=== PATIENT | male | born 1995 | race Caucasian/White ===

== ENCOUNTER 2020-11-04 17:39 | Emergency (ER) | payer OTHER ==
[2020-11-04 18:11] VITALS: PULSE 68; RESP 18
--- NOTE | 2020-11-04 19:05 | ED ---
Skin/Abscess/FB HPI - General Chief complaint: Skin/Abscess/Foreign Body Stated complaint: Spider bite Time Seen by Provider: 11/04/20 18:23 Source: patient, RN notes reviewed Mode of arrival: ambulatory Limitations: no limitations - History of Present Illness Initial comments: Edgar medina is a 25 she'll male that presents to emergency department for a bug bite to the lateral aspect of his right ankle. He notes that he woke up with this morning tried to pop it came in today due to some mild pain around the area. He notes he did not take any Benadryl Motrin or any topical stuff. He was otherwise a well-appearing 25-year-old male in no apparent distress or pain. He denied any chest pain shortness breath headache nausea vomiting diarrhea constipation fever fatigue chills. - Related Data Allergies Allergy/AdvReac Type Severity Reaction Status Date / Time No Known Allergies Allergy Verified 11/04/20 18:11 Review of Systems ROS Statement: Those systems with pertinent positive or pertinent negative responses have been documented in the HPI. ROS Other: All systems not noted in ROS Statement are negative. Past Medical History Past Medical History: Seizure Disorder History of Any Multi-Drug Resistant Organisms: None Reported Past Surgical History: No Surgical Hx Reported Past Psychological History: No Psychological Hx Reported Smoking Status: Current every day smoker Past Alcohol Use History: None Reported Past Drug Use History: None Reported General Exam Limitations: no limitations General appearance: alert, in no apparent distress, obese Head exam: Present: atraumatic, normocephalic, normal inspection Eye exam: Present: normal appearance, PERRL, EOMI. Absent: scleral icterus, conjunctival injection, periorbital swelling Neck exam: Present: normal inspection Respiratory exam: Present: normal lung sounds bilaterally. Absent: respiratory distress, wheezes, rales, rhonchi, stridor Cardiovascular Exam: Present: regular rate, normal rhythm, normal heart sounds. Absent: systolic murmur, diastolic murmur, rubs, gallop, clicks Extremities exam: Present: normal inspection, full ROM, normal capillary refill. Absent: tenderness, pedal edema, joint swelling, calf tenderness Neurological exam: Present: alert, oriented X3 Psychiatric exam: Present: normal affect, normal mood Skin exam: Present: warm, dry, intact, normal color, other (1 cm x 1 similar bug bite to the lateral aspect of the right ankle, nontender no signs or symptoms of infection.). Absent: rash Course Vital Signs 11/04/20 18:09 Temperature 99 F Pulse Rate 68 Respiratory 18 Rate Blood Pressure 130/72 O2 Sat by Pulse 98 Oximetry Medical Decision Making - Medical Decision Making 25-year-old male complaining of a bug bite to the lateral right ankle. 15 mg of Toradol, 125 mg of Solu-Medrol ordered for pain management. Case discussed with Dr. Khan, patient discharge home with follow-up primary care. Disposition Clinical Impression: Insect bite Disposition: HOME SELF-CARE Condition: Stable Instructions (If sedation given, give patient instructions): Insect Bite or Sting (ED) Additional Instructions: Please return to the Emergency Department if symptoms worsen or any other concerns. Follow-up with primary care 1-2 days. Use Benadryl ointment and/or steroid pain to help with itching and swelling. Is patient prescribed a controlled substance at d/c from ED?: No Referrals: Rogelio Shelby MD [Primary Care Provider] - 1-2 days Time of Disposition: 19:05
[2020-11-04] MEDS: KETOROLAC 15 MG/ML 1 ML VIAL IM STA (19:16)
[2020-11-04] MEDS: methylPREDNISolone SOD SUCCI 125 MG/2 ML VIAL IM ONE (19:17)
[2020-11-04 19:36] VITALS: BP 111/67; TEMP 97.5
== END 2020-11-04 19:35 | disposition home or self-care (01) ==
LOC: EC 17:39
DX: S90.561A Insect bite (nonvenomous), right ankle, initial encounter (principal); F17.200 Nicotine dependence, unspecified, uncomplicated; G40.909 Epilepsy, unspecified, not intractable, without status epilepticus; W57.XXXA Bitten or stung by nonvenomous insect and other nonvenomous arthropods, initial encounter
CPT/HCPCS: 96372; 99282

== ENCOUNTER 2020-11-08 03:41 | Emergency (ER) | payer OTHER ==
[2020-11-08 03:46] VITALS: BP 122/73; PULSE 83; RESP 20; TEMP 97.9
[2020-11-08] MEDS ORDERED: SULFAMETHOX-TMP 800-160MG 1 EACH TAB PO STA (03:56)
[2020-11-08] MEDS ORDERED: CEPHALEXIN 500 MG CAP PO STA (03:56)
[2020-11-08] MEDS ORDERED: HYDROCORTISONE 1% CREAM 30 GM TUBE TOPICAL STA (03:57)
--- NOTE | 2020-11-08 03:59 | ED ---
Skin/Abscess/FB HPI - General Chief complaint: Skin/Abscess/Foreign Body Stated complaint: Spider bite recheck Time Seen by Provider: 11/08/20 03:48 Source: patient, RN notes reviewed, old records reviewed Mode of arrival: ambulatory Limitations: no limitations - History of Present Illness Initial comments: This is a 25-year-old male to the ER for evaluation today. Patient presents today for evaluation of recheck recheck for bug bite uncertain cause of bug bite. Patient was seen here 2 days ago for similar complaints states the pain is worse but it has drained. Swelling is mildly worse. Patient otherwise has no medical complications takes no medications and no other complaints MD complaint: insect bite/sting, abscess/boil -: days(s) (3) Location: RLE, R foot Severity: mild Severity scale (1-10): 2 Quality: stabbing Consistency: constant, intermittent Improves with: topical medication Worsens with: none Context: witnessed insect bite Associated symptoms: denies other symptoms Treatments Prior to Arrival: none - Related Data Previous Rx's Medication Instructions Recorded Cephalexin [Keflex] 500 mg PO Q6HR #40 cap 11/08/20 Sulfamethox-Tmp 800-160Mg [Bactrim 2 tab PO BID #40 tab 11/08/20 DS 800-160 mg] Allergies Allergy/AdvReac Type Severity Reaction Status Date / Time No Known Allergies Allergy Verified 11/08/20 03:45 Review of Systems ROS Statement: Those systems with pertinent positive or pertinent negative responses have been documented in the HPI. ROS Other: All systems not noted in ROS Statement are negative. Past Medical History Past Medical History: Seizure Disorder History of Any Multi-Drug Resistant Organisms: None Reported Past Surgical History: No Surgical Hx Reported Past Psychological History: No Psychological Hx Reported Smoking Status: Current every day smoker Past Alcohol Use History: Occasional Past Drug Use History: None Reported General Exam Limitations: no limitations General appearance: alert, in no apparent distress Head exam: Present: atraumatic, normocephalic, normal inspection Eye exam: Present: normal appearance, PERRL, EOMI. Absent: scleral icterus, conjunctival injection, periorbital swelling ENT exam: Present: normal exam, mucous membranes moist Neck exam: Present: normal inspection. Absent: tenderness, meningismus, lymphadenopathy Respiratory exam: Present: normal lung sounds bilaterally. Absent: respiratory distress, wheezes, rales, rhonchi, stridor Cardiovascular Exam: Present: regular rate, normal rhythm, normal heart sounds. Absent: systolic murmur, diastolic murmur, rubs, gallop, clicks GI/Abdominal exam: Present: soft, normal bowel sounds. Absent: distended, tenderness, guarding, rebound, rigid Extremities exam: Present: normal inspection, full ROM, normal capillary refill. Absent: tenderness, pedal edema, joint swelling, calf tenderness Back exam: Present: normal inspection Neurological exam: Present: alert, oriented X3, CN II-XII intact Psychiatric exam: Present: normal affect, normal mood Skin exam: Present: warm, dry, intact, normal color. Absent: rash Course Vital Signs 11/08/20 03:43 Temperature 97.9 F Pulse Rate 83 Respiratory 20 Rate Blood Pressure 122/73 O2 Sat by Pulse 97 Oximetry - Reevaluation(s) Reevaluation #1: 11/08/20 Medical record is reviewed Patient symptoms are improved here in the ER Patient informed of results and questions answered Patient is in no distress Patient is okay for discharge Medical Decision Making - Medical Decision Making 25 male DF for evaluation of right lower [place] bug bite with mild cellulitis currently. [place]. Punctate abscess but that did drain itself. Patient is refusing to take antibiotics was requesting pain medications which are not necessary for patient's current clinical condition. He'll be discharged home Disposition Clinical Impression: Insect bite, Cellulitis, Cellulitis of left ankle Disposition: HOME SELF-CARE Condition: Good Instructions (If sedation given, give patient instructions): Cellulitis (ED) Prescriptions: Sulfamethox-Tmp 800-160Mg [Bactrim DS 800-160 mg] 2 tab PO BID #40 tab Cephalexin [Keflex] 500 mg PO Q6HR #40 cap Is patient prescribed a controlled substance at d/c from ED?: No Referrals: Travis Shelby MD [Primary Care Provider] - 1-2 days
[2020-11-08] MEDS ORDERED: MUPIROCIN 2% OINT 22 GM TUBE TOPICAL ONE (04:00)
[2020-11-08] MEDS: CEPHALEXIN 500MG STARTER PACK 4 CAP BTL PO STA ×2 (04:13→04:23)
[2020-11-08] MEDS: SULFAMETH-TMP DS STARTER PACK 2 TAB BTL PO STA ×2 (04:13→04:24)
== END 2020-11-08 04:29 | disposition home or self-care (01) ==
LOC: EC 03:41
DX: S90.861A Insect bite (nonvenomous), right foot, initial encounter (principal); L03.115 Cellulitis of right lower limb; F17.200 Nicotine dependence, unspecified, uncomplicated; W57.XXXA Bitten or stung by nonvenomous insect and other nonvenomous arthropods, initial encounter
CPT/HCPCS: 99282